=== PATIENT | female | born 1970 | race Caucasian/White ===

== ENCOUNTER 2023-01-15 13:57 | Emergency (ER) | payer SELFPAY ==
[~2023-01-15] VITALS: Ht 170.2 cm; Wt 83.6 kg
[2023-01-15 14:01] VITALS: TEMP 97.7
[2023-01-15 15:33] LABS: BASO % 0.4 % (0.0-2.0); EOS # 0.1 K/mm3 (0.0-0.7); EOS % 0.7 % (0.0-4.0); GRAN % 66.5 % (42.2-75.2); HEMATOCRIT 43.3 % (37.0-47.0); HEMOGLOBIN 14.5 g/dl (12.5-16.0); LYMPH # 2.5 K/mm3 (1.2-3.4); LYMPH % 27.3 % (20.0-51.0); MEAN CELL VOLUME 97 fl (80.0-100.0); MEAN CORPUSCULAR HEMOGLOBIN 32 pg (27-31); MEAN CORPUSCULAR HGB CONC 34 g/dl (33.0-37.0); MEAN PLATELET VOLUME 10.1 fl (7.4-10.4); MONO # 0.4 K/mm3 (0.1-0.6); MONO % 4.8 % (1.7-9.3); PLATELET COUNT 271 K/mm3 (130-400); RED BLOOD COUNT 4.47 M/mm3 (4.10-5.30); REDCELL DISTRIBUTION WIDTH-CV 15.4 % (11.5-14.5)
[2023-01-15 15:53] LABS: BILIRUBIN,TOTAL 0.4 mg/dL (0.2-1.2); C-REACTIVE PROTEIN 1.19 mg/dL (0.00-0.50); CALCIUM 9.3 mg/dL (8.4-10.2); CREATININE, serum 0.86 mg/dL (0.57-1.11); POTASSIUM 4.3 mmol/L (3.5-4.5); TOTAL PROTEIN 7.6 gm/dL (6.2-8.1)
[2023-01-15 17:12] LABS: COLLECTION METHOD CLEAN CATCH
[2023-01-15 17:53] LABS: PH 5.5 (5.0-8.5); URINE APPEARANCE Clear (CLEAR/HAZY); URINE BLOOD Negative (NEGATIVE); URINE COLOR Yellow (YELLOW); URINE GLUCOSE Negative (NEGATIVE); URINE KETONE Negative (NEGATIVE); URINE NITRATE Negative (NEGATIVE); URINE PROTEIN(semi-quant) Negative (NEGATIVE); URINE RBC 0-2 /hpf (0-2); URINE UROBILINOGEN 0.2 E.U/dL (0.2-1.0)
[2023-01-15] MEDS ORDERED: ZOFRAN ODT4 MG PO ×3 (18:31→18:54)
[2023-01-15] MEDS ORDERED: ZITHROMAX Z PA250 MG PO ×3 (18:31→18:54)
[2023-01-15] MEDS ORDERED: NORCO 325 MG-51 TAB PO ×3 (18:31→18:54)
[2023-01-15] MEDS ORDERED: PROTONIX 40MG T40 MG PO ×3 (18:31→18:54)
[2023-01-15 18:44] VITALS: BP 144/94; PULSE 67
== END 2023-01-15 18:46 | disposition home or self-care (01) ==
LOC: COL.ER 13:57
PROVIDERS: Emergency Medicine
DX: K92.1 Melena (principal); R10.84 Generalized abdominal pain; R11.2 Nausea with vomiting, unspecified; J06.9 Acute upper respiratory infection, unspecified; R79.82 Elevated C-reactive protein (CRP); F17.210 Nicotine dependence, cigarettes, uncomplicated; Z88.1 Allergy status to other antibiotic agents
CPT/HCPCS: J1170; J1885; J2405; J7030; Q9967

== ENCOUNTER 2023-09-16 13:13 | Emergency (ER) | payer SELFPAY ==
[~2023-09-16] VITALS: Ht 167.6 cm; Wt 90.9 kg
[~2023-09-16 13:13] MED LIST: NORCO 325 MG-51 TAB PO; PROTONIX 40MG T40 MG PO; ZITHROMAX Z PA250 MG PO; ZOFRAN ODT4 MG PO
[2023-09-16 13:25] VITALS: TEMP 98.2
[2023-09-16] MEDS ORDERED: Pantoprazole 40 MG in NS 10 ML IV ONE (14:15)
[2023-09-16] MEDS ORDERED: LORazepam 2 MG/ML 1 ML VIAL IV ONE (14:15)
[2023-09-16] MEDS ORDERED: NS 1,000 ML IV ONE (14:15)
[2023-09-16] MEDS ORDERED: Ondansetron 4 MG/2 ML VIAL IV ONE (14:15)
[2023-09-16] MEDS ORDERED: Morphine 4 MG/ML VIAL IV PRN (14:15)
[2023-09-16 14:21] LABS: BASO % 0.3 % (0.0-2.0); EOS # 0.1 K/mm3 (0.0-0.7); EOS % 0.8 % (0.0-4.0); GRAN # 5.7 K/mm3 (1.4-6.5); GRAN % 61.5 % (42.2-75.2); HEMATOCRIT 47.2 % (37.0-47.0); HEMOGLOBIN 15.9 g/dl (12.5-16.0); LYMPH # 2.9 K/mm3 (1.2-3.4); LYMPH % 31.1 % (20.0-51.0); MEAN CELL VOLUME 100 fl (80.0-100.0); MEAN CORPUSCULAR HEMOGLOBIN 34 pg (27-31); MEAN CORPUSCULAR HGB CONC 34 g/dl (33.0-37.0); MEAN PLATELET VOLUME 9.9 fl (7.4-10.4); MONO # 0.5 K/mm3 (0.1-0.6); MONO % 5.9 % (1.7-9.3); PLATELET COUNT 312 K/mm3 (130-400); RED BLOOD COUNT 4.73 M/mm3 (4.10-5.30)
[2023-09-16 14:33] LABS: ALANINE AMINOTRANSFERASE 20 U/L (0-55); ALBUMIN 4.2 g/dL (3.5-5.0); ALKALINE PHOSPHATASE 104 U/L (40-150); ANION GAP 13 mmol/L (7-16); AST,SGOT 18 U/L (5-34); BILIRUBIN,TOTAL 0.4 mg/dL (0.2-1.2); BLOOD UREA NITROGEN 11 mg/dL (10-20); CALCIUM 9.2 mg/dL (8.4-10.2); CHLORIDE 107 mEq/L (98-107); CREATININE, serum 0.94 mg/dL (0.57-1.11); GLUCOSE 92 mg/dL (70-99); LIPASE 15 U/L (8-78); POTASSIUM 4.6 mEq/L (3.5-4.5); SODIUM 139 mEq/L (136-145); TOTAL PROTEIN 8.1 g/dl (6.2-8.1)
[2023-09-16 14:50] LABS: TROPONIN-I < 0.010 ng/mL (0.00-0.033)
[2023-09-16] MEDS ORDERED: NS 100 ML IV SCH (15:00)
[2023-09-16] MEDS ORDERED: Iohexol 300 - 100 ML VIAL IV ONE (15:00)
[2023-09-16 15:45] LABS: COLLECTION METHOD CLEAN CATCH
[2023-09-16 15:54] LABS: URINE APPEARANCE CLEAR (CLEAR/HAZY); URINE COLOR YELLOW (YELLOW)
[2023-09-16 15:55] LABS: URINE BLOOD NEGATIVE (NEGATIVE); URINE GLUCOSE NEGATIVE (NEGATIVE); URINE KETONE NEGATIVE (NEGATIVE); URINE NITRATE NEGATIVE (NEGATIVE); URINE PROTEIN(semi-quant) NEGATIVE (NEGATIVE); URINE UROBILINOGEN 0.2 E.U/dL (0.2-1.0)
[2023-09-16] MEDS ORDERED: Sucralfate Susp 1 GM/10 ML UD PO ONE (16:30)
[2023-09-16 16:45] VITALS: BP 126/86; PULSE 66
== END 2023-09-16 16:45 | disposition home or self-care (01) ==
LOC: COL.ER 13:13
PROVIDERS: Emergency Medicine
DX: R10.13 Epigastric pain (principal)
CPT/HCPCS: J2060; J2270; J2405; J2470; J7030; Q9967